=== PATIENT | female | born 1980 | race African-American/Black ===

== ENCOUNTER 2022-04-03 20:19 | Emergency (ER) | payer MEDICAID, OTHER ==
[~2022-04-03] VITALS: Ht 165.1 cm; Wt 71.0 kg
[2022-04-03] MEDS ORDERED: HYDROCODONE/ACETAMINOPHEN 5/325MG TABLET PO ONE (21:30)
[2022-04-03] MEDS ORDERED: LIDOCAINE 5% PATCH TOP SCH (21:30)
[2022-04-03] MEDS ORDERED: GABA-529 MT (22:27)
[2022-04-03] MEDS ORDERED: LIDO700A15 TP (22:27)
[2022-04-03] MEDS ORDERED: MED4 MT (22:27)
[2022-04-03 23:30] VITALS: BP 126/69
== END 2022-04-03 23:30 | disposition home or self-care (01) ==
LOC: ER 20:19
DX: S29.012A Strain of muscle and tendon of back wall of thorax, initial encounter (principal); R03.0 Elevated blood-pressure reading, without diagnosis of hypertension; X58.XXXA Exposure to other specified factors, initial encounter; Y93.89 Activity, other specified; Y92.89 Other specified places as the place of occurrence of the external cause; G40.909 Epilepsy, unspecified, not intractable, without status epilepticus
CPT/HCPCS: 99283

== ENCOUNTER 2023-07-13 22:09 | Emergency (ER) | payer OTHER ==
[~2023-07-13] VITALS: Ht 167.6 cm; Wt 65.0 kg
[~2023-07-13 22:09] MED LIST: GABA-529 MT; LIDO700A15 TP; MED4 MT
[2023-07-13 22:12] VITALS: BP 122/84; PULSE 106; RESP 16; TEMP 98.1; O2SAT 100
[2023-07-13] MEDS ORDERED: LEVETIRACETAM 1000MG PREMIX 100 ML IV ONE (22:30)
[2023-07-13 22:51] LABS: HEMATOCRIT. 27.8 % (36.0-48.0); HEMOGLOBIN. 8.9 g/dL (12.0-16.0); MEAN CORPUSCULAR HGB CONC 32.2 g/dL (31.0-37.0); MEAN CORPUSCULAR VOLUME 71.6 fL (81.0-99.0); MEAN PLATELET VOLUME 7.2 fl (7.4-10.4); PLATELET 395 x1000/uL (130-400); RED BLOOD CELL COUNT 3.88 mill/uL (4.2-5.4); RED CELL DISTRIBUTION WIDTH 22.3 % (11.6-14.6); WHITE BLOOD COUNT 5.1 x1000/uL (4.5-11.0)
[2023-07-13 22:53] LABS: DIFFERENTIAL COMMENT 1
[2023-07-13 22:58] LABS: CHLORIDE 110 mEq/L (98-107); INDEX HEMOLYSI 1 (1-3); INDEX ICTERIC 1 (1-4); INDEX LIPEMIC 1 (1-3); POTASSIUM 3.4 mEq/L (3.5-5.1); SODIUM 140 mEq/L (136-145)
[2023-07-13 23:08] LABS: ALANINE AMINOTRANSFERASE 24 IU/L (13-61); ALBUMIN 3.1 g/dL (3.4-5.0); ASPARTATE AMINOTRANSFERASE 16 IU/L (15-37); BILIRUBIN TOTAL 0.2 mg/dL (0.1-1.0); CALCIUM 8.1 mg/dL (8.5-10.1); CARBON DIOXIDE 28 mEq/L (21-32); CREATININE 1.1 mg/dL (0.6-1.3); ETHANOL BLOOD < 10 mg/dL (-10); GLUCOSE 126 mg/dL (70-105); HCG SCREEN NEGATIVE; PROTEIN TOTAL 6.3 g/dL (6.0-8.3); UREA NITROGEN BLOOD 12 mg/dL (7-21)
[2023-07-13 23:13] LABS: ANISOCYTOSIS 2+; HYPOCHROMASIA 1+; MICROCYTOSIS 2+; PLATELET ESTIMATE NORMAL
[2023-07-14] MEDS ORDERED: GABAPENTIN 100MG CAPSULE PO ONE (00:45)
[2023-07-14] MEDS ORDERED: PHENYTOIN SODIUM EXTENDED 100MG CAPSULE PO ONE (00:45)
[2023-07-14] MEDS ORDERED: PHEN100C4 MT (02:20)
[2023-07-14] MEDS ORDERED: GABA100C MT (02:20)
[2023-07-14] MEDS ORDERED: LEVETIRACETAM 1000MG PREMIX 100 ML IV NR (02:45)
[2023-07-14] MEDS ORDERED: PHENYTOIN SODIUM EXTENDED 100MG CAPSULE PO NR (02:45)
== END 2023-07-14 04:01 ==
LOC: ER 22:09
DX: R56.9 Unspecified convulsions (principal); Z79.899 Other long term (current) drug therapy
CPT/HCPCS: 80053; 80320; 82962; 84703; 85025; 36415; 99283; 96374; J1953; G0480